=== PATIENT | male | born 1960 ===

== ENCOUNTER 2017-03-29 05:20 | Emergency (ER) | payer MEDICAID ==
[2017-03-29 06:08] LABS: BASO % 0.1 % (0.0-2.0); EOS % 0.1 % (0.0-4.0); HEMATOCRIT 40.1 % (35.0-51.0); LYMPH # 0.2 K/uL (1.0-4.3); LYMPH % 1.5 % (20.0-40.0); MEAN CELL VOLUME 89.2 fL (80.0-94.0); MEAN CORPUSCULAR HEMOGLOBIN 29.9 pg (27.0-31.0); MEAN CORPUSCULAR HGB CONC 33.5 g/dL (33.0-37.0); MEAN PLATELET VOLUME 7.8 fL (7.2-11.7); MONO # 0.9 K/uL (0.0-0.8); NRBC % 0.1 % (0.0-2.0); PLATELET COUNT 182 K/uL (130-400); RED CELL DISTRIBUTION WIDTH 14.1 % (11.5-14.5); WHITE BLOOD COUNT 13.2 K/uL (4.8-10.8)
[2017-03-29 06:11] LABS: CHLORIDE 99 mmol/L (98-107); SODIUM 138 mmol/L (132-148)
[2017-03-29 06:14] LABS: ALB/GLOB RATIO 1.4 (1.0-2.1); ALKALINE PHOSPHATASE 68 U/L (38-126); ALT/SGPT 23 U/L (21-72); AST/SGOT 66 U/L (17-59); BILIRUBIN,TOTAL 1.2 mg/dL (0.2-1.3); BLOOD UREA NITROGEN 30 mg/dL (9-20); CARBON DIOXIDE 19 mmol/L (22-30); GFR AFRICAN-AMERICAN 42; GLUCOSE,RANDOM 172 mg/dL (75-110); TOTAL PROTEIN 8.4 g/dL (6.3-8.3)
[2017-03-29 06:15] LABS: ALCOHOL SERUM < 10 mg/dl (0-10); CALCIUM 10.5 mg/dl (8.6-10.4)
[2017-03-29 06:48] LABS: RBC URINE 6 /hpf (0-3); URINE BACTERIA FEW (<OCC); URINE BILIRUBIN NEGATIVE (NEGATIVE); URINE BLOOD 2+ (NEGATIVE); URINE COLOR Yellow (YELLOW); URINE GLUCOSE (UA) NORMAL (Normal); URINE KETONE TRACE mg/dL (NEGATIVE); URINE LEUKOCYTE ESTERASE NEG Leu/uL (Negative); URINE PROTEIN 2+ mg/dL (NEGATIVE); URINE UROBILINOGEN NORMAL mg/dL (0.2-1.0); WBC URINE 2 /hpf (0-5)
[2017-03-29] MEDS ORDERED: Sodium Chloride 0.9% 1,000 ML IV ONE (07:29)
[2017-03-29] MEDS ORDERED: Tetanus/Diphtheria Toxoids 0.5 ml Syringe IM ONE ×2 (07:29→08:00)
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
[2017-03-29 08:24] VITALS: BP 127/81; PULSE 98; RESP 18; TEMP 98
[2017-03-29 08:48] LABS: NEUTROPHIL 93 % (50-75); TOTAL CELLS COUNTED 100
[2017-03-29 08:49] LABS: LARGE PLATELETS PRESENT
[2017-03-29 08:52] VITALS: O2SAT 96
== END 2017-03-29 09:05 | disposition home or self-care (01) ==
LOC: EDBD 05:20 → C.ER 05:20
DX: S01.111A Laceration without foreign body of right eyelid and periocular area, initial encounter (principal); Y04.0XXA Assault by unarmed brawl or fight, initial encounter; Y92.009 Unspecified place in unspecified non-institutional (private) residence as the place of occurrence of the external cause; N28.9 Disorder of kidney and ureter, unspecified; F14.10 Cocaine abuse, uncomplicated; F12.10 Cannabis abuse, uncomplicated; F10.10 Alcohol abuse, uncomplicated; Y90.0 Blood alcohol level of less than 20 mg/100 ml

== ENCOUNTER 2017-03-30 15:27 | Emergency (ER) | payer MEDICAID ==
[2017-03-30 15:40] VITALS: BMI 19.3
[2017-03-30 15:42] VITALS: BP 118/78; PULSE 86; RESP 18; TEMP 99.3; O2SAT 95
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
[2017-03-30] MEDS ORDERED: Bacitracin 500 Units/gm Oint Foilpak UD TOP ONE (16:12)
== END 2017-03-30 16:54 | disposition home or self-care (01) ==
LOC: C.ER 15:27
DX: S91.312D Laceration without foreign body, left foot, subsequent encounter (principal); S91.311D Laceration without foreign body, right foot, subsequent encounter; Y08.89XD Assault by other specified means, subsequent encounter

== ENCOUNTER 2018-04-01 20:38 | Emergency (ER) | payer MEDICAID ==
[2018-04-01 20:39] VITALS: BMI 19.3
[2018-04-01 21:44] VITALS: PULSE 83; RESP 20; TEMP 97.8; O2SAT 96
[2018-04-01] MEDS ORDERED: Absorbable Gelatin Sponge Size 12-7 TOP STA (22:23)
--- NOTE | 2018-04-01 22:46 | C.PDOC ---
History Of Present Illness 57 year old male presents to the ER stating he ran out of his losartan and is requesting a refill. Patient is also complaining of bleeding from the lower gums , he has a Hx of throat ca with radiation, now in remission. Patient was at [facility] but the wait time was 6 hours so he decided to leave and come here. Denies chest pain, SOB, nausea, vomiting, or other complaints. Time Seen by Provider: 04/01/18 22:13 Chief Complaint (Nursing): High Blood Pressure History Per: Patient History/Exam Limitations: no limitations Onset/Duration Of Symptoms: Hrs Current Symptoms Are (Timing): Still Present Quality Of Symptoms: Asymptomatic Recent travel outside of the [place]: No Past Medical History Reviewed: Historical Data, Nursing Documentation, Vital Signs Vital Signs: Last Vital Signs Temp 97.8 F 04/01/18 21:40 Pulse 83 04/01/18 21:40 Resp 20 04/01/18 21:40 BP 171/95 H 04/01/18 21:40 Pulse Ox 96 04/01/18 22:51 Family History: States: Unknown Family Hx - Social History Hx Alcohol Use: Yes Hx Substance Use: No - Immunization History Hx Tetanus Toxoid Vaccination: No Hx Influenza Vaccination: No Hx Pneumococcal Vaccination: No Review Of Systems Except As Marked, All Systems Reviewed And Found Negative. ENT: Positive for: Other (Bleeding gums) Cardiovascular: Positive for: Other (HTN) Physical Exam - Physical Exam Appears: Non-toxic Skin: Normal Color, Warm, Dry Head: Atraumatic, Normacephalic Eye(s): bilateral: Normal Inspection Nose: Normal Oral Mucosa: Moist Tongue: Normal Appearing Gingiva: Other (Slight oozing to left lower gum around tooth #17) Throat: Normal Neck: Normal, Supple Chest: Symmetrical, No Tenderness Cardiovascular: Rhythm Regular Respiratory: Normal Breath Sounds, No Rales, No Rhonchi, No Wheezing Gastrointestinal/Abdominal: Soft, No Tenderness Neurological/Psych: Oriented x3, Normal Speech ED Course And Treatment O2 Sat by Pulse Oximetry: 96 (room air) Pulse Ox Interpretation: Normal Medical Decision Making Medical Decision Making: Gel foam applied to bleeding gum with improvement, patient given dose of losartan here in the ER and discharged with instructions to follow up with PMD. Disposition Counseled Patient/Family Regarding: Studies Performed, Diagnosis, Need For Followup - Disposition Disposition: HOME/ ROUTINE Disposition Time: :46 Condition: STABLE Additional Instructions: follow up with your doctor within 2 days call to make an appointment take blood pressure medications as prescribed return to ER if symptoms worsens or progress Prescriptions: Losartan [Cozaar] 25 mg PO DAILY #20 tab Instructions: High Blood Pressure in Adults, Bleeding Gums (DC) Forms: General Discharge Instructions, [facility] (Polish) - Clinical Impression Clinical Impression: Hypertension, Bleeding gums - Scribe Statement The provider has reviewed the documentation as recorded by the Scribmariah Abrams All medical record entries made by the Jamarcusibmariah were at my direction and personally dictated by me. I have reviewed the chart and agree that the record accurately reflects my personal performance of the history, physical exam, medical decision making, and the department course for this patient. I have also personally directed, reviewed, and agree with the discharge instructions and disposition.
--- NOTE | 2018-04-01 22:48 | C.PDOC ---
Time Seen by Provider: 04/01/18 22:13 Chief Complaint (Nursing): High Blood Pressure Past Medical History Vital Signs: Last Vital Signs Temp 97.8 F 04/01/18 21:40 Pulse 83 04/01/18 21:40 Resp 20 04/01/18 21:40 BP 171/95 H 04/01/18 21:40 Pulse Ox 96 04/01/18 21:40 - Social History Hx Alcohol Use: Yes Hx Substance Use: No - Immunization History Hx Tetanus Toxoid Vaccination: No Hx Influenza Vaccination: No Hx Pneumococcal Vaccination: No ED Course And Treatment O2 Sat by Pulse Oximetry: 96 Disposition Counseled Patient/Family Regarding: Diagnosis, Need For Followup, Rx Given - Disposition Disposition: HOME/ ROUTINE Disposition Time: 22:46 Condition: STABLE Additional Instructions: follow up with your doctor within 2 days call to make an appointment take blood pressure medications as prescribed return to ER if symptoms worsens or progress Prescriptions: Losartan [Cozaar] 25 mg PO DAILY #20 tab Instructions: High Blood Pressure in Adults, Bleeding Gums (DC) Forms: [facility] (Hungarian), General Discharge Instructions - Clinical Impression Clinical Impression: Hypertension, Bleeding gums
[2018-04-01 22:59] VITALS: BP 164/70
== END 2018-04-01 22:58 | disposition home or self-care (01) ==
LOC: C.ER 20:38
DX: I10 Essential (primary) hypertension (principal); K06.8 Other specified disorders of gingiva and edentulous alveolar ridge

== ENCOUNTER 2018-09-12 17:40 | Emergency (ER) | payer MEDICAID ==
[2018-09-12 17:41] VITALS: BMI 19.3
[2018-09-12 17:50] VITALS: BP 169/88; PULSE 77; RESP 20; TEMP 98.4; O2SAT 98
[2018-09-12] MEDS ORDERED: Oxycodone/Acetaminophen 5/325 mg Tab PO STA (18:18)
[2018-09-12] MEDS ORDERED: Oxycodone/Acetaminophen 5/325 mg Tab ONE (18:24)
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
== END 2018-09-12 18:45 | disposition home or self-care (01) ==
LOC: C.ER 17:40
DX: K04.7 Periapical abscess without sinus (principal); I10 Essential (primary) hypertension

== ENCOUNTER 2019-01-26 20:52 | Emergency (ER) | payer MEDICAID ==
[2019-01-26 20:52] VITALS: BMI 19.3
[2019-01-26 21:08] VITALS: BP 170/90; PULSE 90; TEMP 98.8; O2SAT 99
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
[2019-01-26 21:53] VITALS: RESP 20
== END 2019-01-26 21:52 | disposition home or self-care (01) ==
LOC: C.ER 20:52
DX: G89.29 Other chronic pain (principal); F11.10 Opioid abuse, uncomplicated

== ENCOUNTER 2019-02-16 10:33 | Outpatient (CLI) | payer MEDICAID | END 2019-02-16 10:34 | disposition home or self-care (01) | LOC: C.RADH 10:33 | DX: M12.572 Traumatic arthropathy, left ankle and foot (principal); M25.571 Pain in right ankle and joints of right foot; M25.572 Pain in left ankle and joints of left foot; M72.2 Plantar fascial fibromatosis ==